=== PATIENT | male | born 1950 ===

== ENCOUNTER 2023-12-01 05:55 | Day surgery (SDC) | payer MEDICARE, OTHER ==
[2023-12-01] MEDS: Dextrose 5%-0.45% NaCl 1,000 ML IV SCH (06:13)
[2023-12-01] MEDS ORDERED: fentaNYL 100 MCG/2 ML SDV ONE (06:15)
[2023-12-01] MEDS ORDERED: Midazolam 1 MG/ML 2 ML SDV ONE (06:15)
[2023-12-01] MEDS: fentaNYL 100 MCG/2 ML SDV IV ONE ×2 (06:30→06:31)
[2023-12-01] MEDS: Midazolam 1 MG/ML 2 ML SDV IV ONE ×4 (06:31→06:38)
== END 2023-12-01 08:00 | disposition home or self-care (01) ==
LOC: DL.ENDO 05:55
PROVIDERS: ATTEND Internal Medicine Gastroenterology
DX: Z12.11 Encounter for screening for malignant neoplasm of colon (principal); K57.30 Diverticulosis of large intestine without perforation or abscess without bleeding; E78.5 Hyperlipidemia, unspecified; E53.8 Deficiency of other specified B group vitamins; D64.9 Anemia, unspecified; H91.90 Unspecified hearing loss, unspecified ear; Z85.038 Personal history of other malignant neoplasm of large intestine; Z98.890 Other specified postprocedural states; Z79.899 Other long term (current) drug therapy
CPT/HCPCS: J2250; J3010; J7042